=== PATIENT | male | born 1970 | race Caucasian/White ===

== ENCOUNTER 2020-03-14 17:15 | Emergency (ER) | payer BC ==
[2020-03-14] MEDS ORDERED: ceFAZolin 1,000 MG VIAL (IM USE) IM STA (18:04)
[2020-03-14] MEDS ORDERED: MORPHINE SULFATE 4 MG/ML SYRINGE IM STA (18:04)
[2020-03-14] MEDS ORDERED: DIPH,PERTUS(ACELL)TETVAC-LF 0.5 ML VIAL IM ONE (18:05)
[2020-03-14] MEDS ORDERED: WATER FOR IRRIG, STERILE 1,000 ML BTL IRRIGATION STA (18:05)
[2020-03-14] MEDS ORDERED: LIDOCAINE 1% INJ 10MG/ML (20 ML MDV) SQ ONE (18:11)
--- NOTE | 2020-03-14 18:31 | ED ---
General Adult HPI - General Chief complaint: Extremity Injury, Lower Stated complaint: chainsaw lac lt foot Time Seen by Provider: 03/14/20 17:58 Source: patient, RN notes reviewed Mode of arrival: wheelchair Limitations: no limitations - History of Present Illness Initial comments: 50-year-old male with a past medical history of hypertension presents to the emergency room for a chief complaint of laceration to the left great toe. Patient states the vadim sawed jumped and cut his left great toe. Patient states he has limited range of motion with extension of the left great toe. Patient is not sure if he is up-to-date on tetanus. Patient denies any other symptoms.Patient has no other complaints at this time including shortness of breath, chest pain, abdominal pain, nausea or vomiting, headache, or visual changes. - Related Data Home Medications Medication Instructions Recorded Confirmed Metoprolol Tartrate [Lopressor] 100 mg PO BID 08/15/15 08/15/15 amLODIPine BESYLATE [Norvasc] 10 mg PO DAILY 08/15/15 08/15/15 Previous Rx's Medication Instructions Recorded Cephalexin [Keflex] 500 mg PO Q6HR 28 Days #7 cap 03/14/20 Allergies Allergy/AdvReac Type Severity Reaction Status Date / Time No Known Allergies Allergy Verified 03/14/20 17:23 Review of Systems ROS Statement: Those systems with pertinent positive or pertinent negative responses have been documented in the HPI. ROS Other: All systems not noted in ROS Statement are negative. Past Medical History Past Medical History: Hypertension Additional Past Medical History / Comment(s): chronic back pain History of Any Multi-Drug Resistant Organisms: None Reported Past Surgical History: Hernia Repair Past Psychological History: No Psychological Hx Reported Smoking Status: Current every day smoker Past Alcohol Use History: Daily, Heavy Past Drug Use History: Marijuana General Exam Limitations: no limitations Course Vital Signs 03/14/20 17:23 Temperature 97.7 F Pulse Rate 93 Respiratory 18 Rate Blood Pressure 155/98 O2 Sat by Pulse 100 Oximetry Procedures - Laceration Laceration #1 Consent Obtained: verbal consent Indication: laceration Site: foot Size (cm): 3 Description: irregular Depth: involves tendon Anesthetic Used: lidocaine 1% Anesthesia Technique: local infiltration, nerve block Amount (mls): 8 Pre-repair: wound explored, irrigated extensively, deep structures intact, foreign body removed (small dirt particles removed) Type of Sutures: nylon Size of Sutures: 4-0 Number of Sutures: 7 Patient Tolerated Procedure: well, no complications Medical Decision Making - Medical Decision Making Vitals are stable. Physical exam reveals a laceration through the proximal phalanx of the left great toe. This does likely involve the tendon as patient is not able to extend the toe. Capillary refill is less than 2 seconds. X-ray of the left toe shows fracture and laceration deformity of the proximal phalanx of the big toe left foot. This was irrigated thoroughly with a liter of sterile water followed by saline pressure irrigation using an 18-gauge Angiocath. It was then approximated with 7 simple interrupted sutures. Patient was given tetanus immunization as well as IM Ancef. He will be placed on Keflex. He will be sent home with a prescription of Tylenol 3. I did discuss this with Dr. Noel who will see him in the office tomorrow. Patient is aware of this and will follow up. Disposition Clinical Impression: Open fracture of toe of left foot, Laceration of toe involving extensor tendon Disposition: HOME SELF-CARE Condition: Good Instructions (If sedation given, give patient instructions): Toe Fracture (ED), Laceration (ED) Additional Instructions: Please keep the area clean. Keep the area dressed. Take antibiotics as directed. Use a postop shoe. Walk more on your heel rather than "toeing off". Follow-up with Dr. Noel next week. Return to the emergency room for any worsening symptoms. Prescriptions: Cephalexin [Keflex] 500 mg PO Q6HR 28 Days #7 cap Is patient prescribed a controlled substance at d/c from ED?: No Referrals: Mary Marino MD [Primary Care Provider] - 1-2 days Doe Noel DO [Medical Doctor] - 1-2 days Time of Disposition: 19:51
--- NOTE | 2020-03-14 18:37 | XR ---
EXAMINATION TYPE: XR toes LT DATE OF EXAM: 03/14/2020 COMPARISON: NONE HISTORY: Injury. Pain. TECHNIQUE: 3 views FINDINGS: There is laceration deformity of the mid shaft of the proximal phalanx of the big toe left foot. There is fracture fragments and fracture of the lateral aspect of the shaft. There is no disloc ation. I see no definite foreign body. IMPRESSION: Fracture and laceration deformity of the proximal phalanx of the big toe left foot.
[2020-03-14] MEDS ORDERED: BACITRACIN OINT 1 EACH PACKET TOPICAL ONE (19:52)
[2020-03-14 20:14] VITALS: BP 158/89; PULSE 78; RESP 20; TEMP 98.2
== END 2020-03-14 20:00 | disposition home or self-care (01) ==
LOC: EC 17:15
DX: S92.402B Displaced unspecified fracture of left great toe, initial encounter for open fracture (principal); S96.122A Laceration of muscle and tendon of long extensor muscle of toe at ankle and foot level, left foot, initial encounter; I10 Essential (primary) hypertension; F17.200 Nicotine dependence, unspecified, uncomplicated; Z79.899 Other long term (current) drug therapy; W31.2XXA Contact with powered woodworking and forming machines, initial encounter
CPT/HCPCS: 73660; 90715; 99283; 12002; 96372 ×2; 90471; J2270; J0690; J2001

== ENCOUNTER 2021-05-30 08:34 | Observation (INO) | payer BC ==
[2021-05-30] MEDS ORDERED: NITROGLYCERIN OINT 1 INCH/GM PACKET TOPICAL STA (09:21)
[2021-05-30] MEDS ORDERED: ASPIRIN 81 MG PO STA (09:21)
--- NOTE | 2021-05-30 09:24 | ED ---
General Adult HPI - General Chief complaint: Chest Pain Stated complaint: YAHAIRA Time Seen by Provider: 05/30/21 09:00 Source: patient, RN notes reviewed Mode of arrival: ambulatory Limitations: no limitations - History of Present Illness Initial comments: Patient is a pleasant 51-year-old male presenting to the emergency department with concerns for chest discomfort. Onset of symptoms was several weeks ago. Symptoms usually occur only with exertion. Patient develops tightness in his chest with associated dyspnea. There is also some mild associated nausea and sweating at times. Symptoms are mild at this point. No history of similar symptoms previously. Currently symptoms are mild. No leg pain or leg swelling. - Related Data Home Medications Medication Instructions Recorded Confirmed Metoprolol Tartrate [Lopressor] 100 mg PO BID 08/15/15 05/30/21 amLODIPine BESYLATE [Norvasc] 10 mg PO HS 08/15/15 05/30/21 Aspirin EC [Ecotrin] 650 mg PO DAILY PRN 05/30/21 05/30/21 Losartan Potassium 100 mg PO HS 05/30/21 05/30/21 Pantoprazole [Protonix] 40 mg PO DAILY 05/30/21 05/30/21 cloNIDine HCL [Catapres] 0.1 mg PO DAILY 05/30/21 05/30/21 traMADol HCL [Ultram] 50 mg PO TID PRN 05/30/21 05/30/21 Allergies Allergy/AdvReac Type Severity Reaction Status Date / Time No Known Allergies Allergy Verified 05/30/21 10:42 Review of Systems ROS Statement: Those systems with pertinent positive or pertinent negative responses have been documented in the HPI. ROS Other: All systems not noted in ROS Statement are negative. Constitutional: Denies: fever Eyes: Denies: eye pain ENT: Denies: ear pain Respiratory: Reports: as per HPI, dyspnea Cardiovascular: Reports: as per HPI, chest pain Endocrine: Reports: fatigue Gastrointestinal: Denies: abdominal pain Genitourinary: Denies: dysuria Musculoskeletal: Denies: back pain Skin: Denies: rash Neurological: Denies: weakness Past Medical History Past Medical History: Hypertension Additional Past Medical History / Comment(s): chronic back pain History of Any Multi-Drug Resistant Organisms: None Reported Past Surgical History: Hernia Repair Past Psychological History: No Psychological Hx Reported Smoking Status: Current every day smoker Past Alcohol Use History: Daily, Occasional Past Drug Use History: Marijuana General Exam Limitations: no limitations General appearance: alert, in no apparent distress Head exam: Present: normocephalic Eye exam: Present: normal appearance Neck exam: Present: normal inspection Respiratory exam: Present: normal lung sounds bilaterally. Absent: chest wall tenderness Cardiovascular Exam: Present: regular rate, normal rhythm Expanded Peripheral pulses: 2+: Radial (R), Radial (L), Posterior Tibialis (R), Posterior Tibialis (L) GI/Abdominal exam: Present: soft. Absent: tenderness Extremities exam: Present: normal inspection. Absent: pedal edema, calf tenderness Neurological exam: Present: alert Psychiatric exam: Present: normal affect, normal mood Skin exam: Present: normal color Course Vital Signs 05/30/21 05/30/21 08:59 09:35 Temperature 98.2 F Pulse Rate 67 64 Respiratory 18 18 Rate Blood Pressure 183/103 143/103 O2 Sat by Pulse 98 96 Oximetry EKG Findings - EKG Comments: EKG Findings:: Normal sinus rhythm rate 62. For screening AV block WI 202. QRS 94. QT 394. QTC 39. Normal axis. Septal Q waves V1 and V2. No acute ST change. Medical Decision Making - Medical Decision Making Patient reevaluated and resting complain bed. Patient and family updated on results and plan. Case was discussed with Dr. pedro, who will admit coming hospital call. - Lab Data Result diagrams: 05/30/21 09:27 05/30/21 09:27 Lab Results 05/30/21 05/30/21 05/30/21 Range/Units 09:27 09:27 09:27 WBC 9.1 (3.8-10.6) k/uL RBC 4.45 (4.30-5.90) m/uL Hgb 14.6 (13.0-17.5) gm/dL Hct 41.4 (39.0-53.0) % MCV 93.0 (80.0-100.0) fL MCH 32.9 (25.0-35.0) pg MCHC 35.3 (31.0-37.0) g/dL RDW 12.6 (11.5-15.5) % Plt Count 206 (150-450) k/uL MPV 8.0 Neutrophils % 69 % Lymphocytes % 18 % Monocytes % 6 % Eosinophils % 5 % Basophils % 0 % Neutrophils # 6.3 (1.3-7.7) k/uL Lymphocytes # 1.6 (1.0-4.8) k/uL Monocytes # 0.6 (0-1.0) k/uL Eosinophils # 0.4 (0-0.7) k/uL Basophils # 0.0 (0-0.2) k/uL PT 10.0 (9.0-12.0) sec INR 0.9 (<1.2) APTT 23.9 (22.0-30.0) sec D-Dimer 0.27 (<0.60) mg/L FEU Sodium 136 L (137-145) mmol/L Potassium 4.4 (3.5-5.1) mmol/L Chloride 104 (98-107) mmol/L Carbon Dioxide 25 (22-30) mmol/L Anion Gap 7 mmol/L BUN 20 (9-20) mg/dL Creatinine 0.85 (0.66-1.25) mg/dL Est GFR (CKD-EPI)AfAm >90 (>60 ml/min/1.73 sqM) Est GFR (CKD-EPI)NonAf >90 (>60 ml/min/1.73 sqM) Glucose 108 H (74-99) mg/dL Calcium 9.6 (8.4-10.2) mg/dL Magnesium 1.9 (1.6-2.3) mg/dL Total Bilirubin 0.4 (0.2-1.3) mg/dL AST 34 (17-59) U/L ALT 58 H (4-49) U/L Alkaline Phosphatase 87 (38-126) U/L Troponin I (0.000-0.034) ng/mL NT-Pro-B Natriuret Pep pg/mL Total Protein 7.3 (6.3-8.2) g/dL Albumin 4.1 (3.5-5.0) g/dL 05/30/21 05/30/21 Range/Units 09:27 09:27 WBC (3.8-10.6) k/uL RBC (4.30-5.90) m/uL Hgb (13.0-17.5) gm/dL Hct (39.0-53.0) % MCV (80.0-100.0) fL MCH (25.0-35.0) pg MCHC (31.0-37.0) g/dL RDW (11.5-15.5) % Plt Count (150-450) k/uL MPV Neutrophils % % Lymphocytes % % Monocytes % % Eosinophils % % Basophils % % Neutrophils # (1.3-7.7) k/uL Lymphocytes # (1.0-4.8) k/uL Monocytes # (0-1.0) k/uL Eosinophils # (0-0.7) k/uL Basophils # (0-0.2) k/uL PT (9.0-12.0) sec INR (<1.2) APTT (22.0-30.0) sec D-Dimer (<0.60) mg/L FEU Sodium (137-145) mmol/L Potassium (3.5-5.1) mmol/L Chloride (98-107) mmol/L Carbon Dioxide (22-30) mmol/L Anion Gap mmol/L BUN (9-20) mg/dL Creatinine (0.66-1.25) mg/dL Est GFR (CKD-EPI)AfAm (>60 ml/min/1.73 sqM) Est GFR (CKD-EPI)NonAf (>60 ml/min/1.73 sqM) Glucose (74-99) mg/dL Calcium (8.4-10.2) mg/dL Magnesium (1.6-2.3) mg/dL Total Bilirubin (0.2-1.3) mg/dL AST (17-59) U/L ALT (4-49) U/L Alkaline Phosphatase (38-126) U/L Troponin I <0.012 (0.000-0.034) ng/mL NT-Pro-B Natriuret Pep 61 pg/mL Total Protein (6.3-8.2) g/dL Albumin (3.5-5.0) g/dL - Radiology Data Radiology results: image reviewed (X-ray shows no acute process) Disposition Clinical Impression: Chest pain Disposition: ADMITTED IP TO THIS [facility] Is patient prescribed a controlled substance at d/c from ED?: No Referrals: Mary Marino MD [Primary Care Provider] - 1-2 days Decision Time: 11:16
[2021-05-30 09:39] LABS: Basophils % (A) 0 %; Eosinophils # (A) 0.4 k/uL (0-0.7); Eosinophils % (A) 5 %; HCT 41.4 % (39.0-53.0); HGB 14.6 gm/dL (13.0-17.5); Lymphocytes # (A) 1.6 k/uL (1.0-4.8); Lymphocytes % (A) 18 %; MCH 32.9 pg (25.0-35.0); MCHC 35.3 g/dL (31.0-37.0); Monocytes # (A) 0.6 k/uL (0-1.0); Monocytes % (A) 6 %; Neutrophils # (A) 6.3 k/uL (1.3-7.7); Neutrophils % (A) 69 %; Platelet Count 206 k/uL (150-450); RBC 4.45 m/uL (4.30-5.90); RDW 12.6 % (11.5-15.5); WBC 9.1 k/uL (3.8-10.6)
[2021-05-30 09:50] LABS: ALT 58 U/L (4-49); AST 34 U/L (17-59); African American GFR (CKD) >90 (>60 ml/min/1.73 sqM); Albumin 4.1 g/dL (3.5-5.0); Alkaline Phosphatase 87 U/L (38-126); Anion Gap 7 mmol/L; Blood Urea Nitrogen 20 mg/dL (9-20); Calcium 9.6 mg/dL (8.4-10.2); Carbon Dioxide 25 mmol/L (22-30); Chloride 104 mmol/L (98-107); Glucose 108 mg/dL (74-99); Magnesium 1.9 mg/dL (1.6-2.3); Non-African American GFR(CKD) >90 (>60 ml/min/1.73 sqM); Potassium 4.4 mmol/L (3.5-5.1); Sodium 136 mmol/L (137-145); Total Bilirubin 0.4 mg/dL (0.2-1.3); Total Protein 7.3 g/dL (6.3-8.2)
[2021-05-30 09:59] LABS: INR 0.9 (<1.2); Partial Thromboplastin Time 23.9 sec (22.0-30.0)
--- NOTE | 2021-05-30 11:11 | XR ---
EXAMINATION TYPE: XR chest 2V DATE OF EXAM: 05/30/2021 COMPARISON: 08/15/2015 INDICATION: Chest pain TECHNIQUE: Frontal and lateral views of the chest are obtained. FINDINGS: The heart size is normal. The pulmonary vasculature is normal. The lungs are clear. IMPRESSION: 1. No acute pulmonary process.
[2021-05-30] MEDS ORDERED: NITROGLYCERIN SL TABS 0.4 MG TAB SUBLINGUAL PRN (11:17)
[2021-05-30] MEDS ORDERED: NITROGLYCERIN OINT 1 INCH/GM PACKET TOPICAL SCH (12:00)
[2021-05-30] MEDS ORDERED: HEPARIN SODIUM 1,000 UN/ML (10ML VL) IV ONE (12:17)
[2021-05-30] MEDS ORDERED: HEPARIN SODIUM 1,000 UN/ML (10ML VL) IV PRN (12:17)
[2021-05-30] MEDS ORDERED: HEPARIN SOD,PORK IN 0.45% NACL 25,000 UNIT in 0.45% NACL 1 250ML.BAG IV SCH (12:30)
--- NOTE | 2021-05-30 12:56 | P.CRDCN ---
History of Present Illness History of present illness: HISTORY OF PRESENTING ILLNESS This is a pleasant 51-year-old male past medical history significant for hypertension, chronic nicotine dependence. 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 We have been asked to see in consultation for chest pain. Patient presents emergency department with complaints of left-sided chest discomfort. He states it started a few weeks ago. Describes it as a pressure and tightness. It is non-radiating. It is exertional and aggravated by activity. Alleviated by resting. He had associated shortness of breath, nausea and diaphoresis. He states the pain would come and go. Denies palpitations, abdominal pain, lower extremity edema, fatigue, weakness, lightheadedness, syncope or near syncope symptoms. Denies orthopnea or PND. Continues to smoke, states he does drink alcohol daily. DIAGNOSTICS EKG reveals sinus rhythm HR 62, T wave inversion in lead V2, EKG in 2016 with similar findings. Most recent stress test in 2018 for stress echo in the office with Dr. Gage which was negative for reversible ischemia. Telemetry tracings indicate sinus mechanism Chest xray no acute cardiopulmonary process Laboratory reviewed, CBC unremarkable, troponin negative 1, d-dimer negative, sodium 136, potassium 4.4, BUN 20, serum creatinine 0.8, magnesium 1.9, proBNP 6 1, creatinine 19 PCR negative Current home medications include clonidine 0.1 mg daily, amlodipine 10 mg nightly, metoprolol titrate 100 mg twice a day, losartan 100 mg nightly, aspirin PRN REVIEW OF SYSTEMS At the time of my exam: CONSTITUTIONAL: Denies fever or chills. CARDIOVASCULAR: + chest pain, +shortness of breath, Denies orthopnea, PND or palpitations. RESPIRATORY: Denies cough. GASTROINTESTINAL: +nausea Denies abdominal pain, diarrhea, constipation, vomiting. MUSCULOSKELETAL: Denies myalgias. NEUROLOGIC: Denies numbness, tingling, headache or weakness. ENDOCRINE: Denies fatigue, weight change, polydipsia or polyurina. GENITOURINARY: Denies burning, hematuria or urgency with micturation. HEMATOLOGIC: Denies history of anemia or bleeding. PHYSICAL EXAMINATION Blood pressure 146/86, heart rate 68, afebrile, oxygen saturation is greater than 92% on room air CONSTITUTIONAL: No apparent distress. HEENT: Head is normocephalic. Pupils are equal, round. Sclerae anicteric. Mucous membranes of the mouth are moist. No JVD. No carotid bruit. CHEST EXAMINATION: Lungs are clear to auscultation. No chest wall tenderness is noted on palpation or with deep breathing. HEART EXAMINATION: Regular rate and rhythm. S1, S2 heard. No murmurs, gallops or rub. ABDOMEN: Soft, nontender. Positive bowel sounds. EXTREMITIES: 2+ peripheral pulses, no lower extremity edema and no calf tendern ess. SKIN: warm, dry NEUROLOGIC EXAMINATION: Patient is awake, alert and oriented x3. ASSESSMENT Chest pain History of hypertension Chronic nicotine dependence PLAN -Rule out acute coronary event, Trend troponin, repeat EKG -Obtain 2D echocardiogram and doppler study to assess cardiac structure and function. -Start IV heparin at this time -Continue aspirin 81mg daily, losartan 100mg nightly, amlodipine 10mg nightly -Start statin -Obtain Lipid panel -Hold metoprolol tartrate for possible stress test tomorrow -Will start hydralazine for blood pressure control -If troponin negative x 3 and EKG with no acute changes, plan for stress echo test to assess for stress induced cardiac ischemia tomorrow 05/31/21. -Smoking cessation discussed and highly recommended. Thank you kindly for this consultation. Nurse Practitioner note has been reviewed, I agree with a documented findings and plan of care. Patient was seen and examined. Past Medical History Past Medical History: Hypertension Additional Past Medical History / Comment(s): chronic back pain History of Any Multi-Drug Resistant Organisms: None Reported Past Surgical History: Hernia Repair Past Psychological History: No Psychological Hx Reported Smoking Status: Current every day smoker Past Alcohol Use History: Daily, Occasional Past Drug Use History: Marijuana Medications and Allergies Home Medications Medication Instructions Recorded Confirmed Type Metoprolol Tartrate [Lopressor] 100 mg PO BID 08/15/15 05/30/21 History amLODIPine BESYLATE [Norvasc] 10 mg PO HS 08/15/15 05/30/21 History Aspirin EC [Ecotrin] 650 mg PO DAILY PRN 05/30/21 05/30/21 History Losartan Potassium 100 mg PO HS 05/30/21 05/30/21 History Pantoprazole [Protonix] 40 mg PO DAILY 05/30/21 05/30/21 History cloNIDine HCL [Catapres] 0.1 mg PO DAILY 05/30/21 05/30/21 History traMADol HCL [Ultram] 50 mg PO TID PRN 05/30/21 05/30/21 History Allergies Allergy/AdvReac Type Severity Reaction Status Date / Time No Known Allergies Allergy Verified 05/30/21 10:42 Physical Exam Vitals: Vital Signs Temp Pulse Resp BP Pulse Ox 05/30/21 12:40 68 18 146/86 98 05/30/21 11:56 65 18 149/83 98 05/30/21 09:35 64 18 143/103 96 05/30/21 08:59 98.2 F 67 18 183/103 98 Intake and Output 05/29/21 05/30/21 05/30/21 22:59 06:59 14:59 Other: Weight 99.79 kg Results 05/30/21 09:27 05/30/21 09:27 Cardiac Enzymes 05/30/21 05/30/21 Range/Units 09:27 09:27 AST 34 (17-59) U/L Troponin I <0.012 (0.000-0.034) ng/mL Coagulation 05/30/21 Range/Units 09:27 PT 10.0 (9.0-12.0) sec APTT 23.9 (22.0-30.0) sec CBC 05/30/21 Range/Units 09:27 WBC 9.1 (3.8-10.6) k/uL RBC 4.45 (4.30-5.90) m/uL Hgb 14.6 (13.0-17.5) gm/dL Hct 41.4 (39.0-53.0) % Plt Count 206 (150-450) k/uL Comprehensive Metabolic Panel 05/30/21 Range/Units 09:27 Sodium 136 L (137-145) mmol/L Potassium 4.4 (3.5-5.1) mmol/L Chloride 104 (98-107) mmol/L Carbon Dioxide 25 (22-30) mmol/L BUN 20 (9-20) mg/dL Creatinine 0.85 (0.66-1.25) mg/dL Glucose 108 H (74-99) mg/dL Calcium 9.6 (8.4-10.2) mg/dL AST 34 (17-59) U/L ALT 58 H (4-49) U/L Alkaline Phosphatase 87 (38-126) U/L Total Protein 7.3 (6.3-8.2) g/dL Albumin 4.1 (3.5-5.0) g/dL Current Medications Generic Name Dose Route Start Last Admin Trade Name Danielq PRN Reason Stop Dose Admin Amlodipine Besylate 10 mg 05/30/21 21:00 Amlodipine 10 Mg Tab PO HS [facility] Aspirin 81 mg 05/31/21 09:00 Aspirin 81 Mg PO DAILY MARIANA Atorvastatin Calcium 40 mg 05/30/21 21:00 Atorvastatin 40 Mg Tab PO HS [facility] Heparin Sodium (Porcine) 0 unit 05/30/21 12:17 Heparin Sodium 1,000 Un/Ml (10ml Vl) IV PER PROTOCOL PRN Low PTT Protocol Hydralazine HCl 25 mg 05/30/21 21:00 Hydralazine Hcl 25 Mg Tab PO BID [facility] Heparin Sodium/Sodium Chloride 250 mls @ 9.979 mls/hr 05/30/21 12:30 25,000 unit/ Sodium Chloride IV .Q24H [facility] Protocol 10 UNITS/KG/HR Losartan Potassium 100 mg 05/30/21 21:00 Losartan 50 Mg Tab PO HS MARIANA Nitroglycerin 0.4 mg 05/30/21 11:17 Nitroglycerin Sl Tabs 0.4 Mg Tab SUBLINGUAL Q5M PRN Chest Pain Sodium Chloride 10 ml 05/30/21 21:00 Sodium Chloride 0.9% Flush 10 Ml Syringe IV BID [facility] Intake and Output 05/29/21 05/30/21 05/30/21 22:59 06:59 14:59 Other: Weight 99.79 kg Patient Weight 05/31/21 06:59 Weight 99.79 kg 05/30/21 09:27 05/30/21 09:27
[2021-05-30 13:07] LABS: Partial Thromboplastin Time 23.8 sec (22.0-30.0); Prothrombin Time 10.3 sec (9.0-12.0)
--- NOTE | 2021-05-30 14:57 | P.HPIM ---
History of Present Illness Patient is a pleasant 51-year-old male came in with complaints of chest pain on the left side of the chest radiating to the left arm pressure-like sensation exertional. Patient did have somewhat diaphoresis associated with the his pain. Patient pain is all on and off does smoke about 1 pack in 3 days. Patient chest pain is nonpleuritic not associated with food. EKG showed T-wave inversions in lead V2. Patient had a stress test in 2018 which was negative for any reversible ischemia chest x-ray did not show any significant abnormality troponins 2 were negative. Patient had history of palpitations. Patient also is presently sinus rhythm. REVIEW OF SYSTEMS: CONSTITUTIONAL: No fever, no malaise, no fatigue. HEENT: No recent visual problems or hearing problems. Denied any sore throat. CARDIOVASCULAR: No corthopnea, PND, no syncope. PULMONARY: No shortness of breath, no cough, no hemoptysis. GASTROINTESTINAL: No diarrhea, no nausea, no vomiting, no abdominal pain. NEUROLOGICAL: No headaches, no weakness, no numbness. HEMATOLOGICAL: Denies any bleeding or petechiae. GENITOURINARY: Denies any burning micturition, frequency, or urgency. MUSCULOSKELETAL/RHEUMATOLOGICAL: Denies any joint pain, swelling, or any muscle pain. ENDOCRINE: Denies any polyuria or polydipsia. The rest of the 14-point review of systems is negative. PHYSICAL EXAMINATION: GENERAL: The patient is alert and oriented x3, not in any acute distress. Well developed, well nourished. HEENT: Pupils are round and equally reacting to light. EOMI. No scleral icterus. No conjunctival pallor. Normocephalic, atraumatic. No pharyngeal erythema. No thyromegaly. CARDIOVASCULAR: S1 and S2 present. No murmurs, rubs, or gallops. PULMONARY: Chest is clear to auscultation, no wheezing or crackles. ABDOMEN: Soft, nontender, nondistended, normoactive bowel sounds. No palpable organomegaly. MUSCULOSKELETAL: No joint swelling or deformity. EXTREMITIES: No cyanosis, clubbing, or pedal edema. NEUROLOGICAL: Gross neurological examination did not reveal any focal deficits. SKIN: No rashes. Assessment and plan -Chest pain we'll rule out acute coronary syndromes patient will undergo stress test tomorrow patient will be monitored for his complaints of palpitations. -Hypertension -Nicotine dependence: Counseling was provided -Chronic low back pain DVT prophylaxis: Patient is presently on IV heparin for possible unstable angina which will be continued Past Medical History Past Medical History: Hypertension Additional Past Medical History / Comment(s): chronic back pain History of Any Multi-Drug Resistant Organisms: None Reported Past Surgical History: Hernia Repair Past Psychological History: No Psychological Hx Reported Smoking Status: Current every day smoker Past Alcohol Use History: Daily, Occasional Past Drug Use History: Marijuana Medications and Allergies Home Medications Medication Instructions Recorded Confirmed Type Metoprolol Tartrate [Lopressor] 100 mg PO BID 08/15/15 05/30/21 History amLODIPine BESYLATE [Norvasc] 10 mg PO HS 08/15/15 05/30/21 History Aspirin EC [Ecotrin] 650 mg PO DAILY PRN 05/30/21 05/30/21 History Losartan Potassium 100 mg PO HS 05/30/21 05/30/21 History Pantoprazole [Protonix] 40 mg PO DAILY 05/30/21 05/30/21 History cloNIDine HCL [Catapres] 0.1 mg PO DAILY 05/30/21 05/30/21 History traMADol HCL [Ultram] 50 mg PO TID PRN 05/30/21 05/30/21 History Allergies Allergy/AdvReac Type Severity Reaction Status Date / Time No Known Allergies Allergy Verified 05/30/21 10:42 Physical Exam Vitals: Vital Signs Temp Pulse Resp BP Pulse Ox 05/30/21 12:40 68 18 146/86 98 05/30/21 11:56 65 18 149/83 98 05/30/21 09:35 64 18 143/103 96 05/30/21 08:59 98.2 F 67 18 183/103 98 Intake and Output 05/29/21 05/30/21 05/30/21 22:59 06:59 14:59 Other: Weight 99.79 kg Results CBC & Chem 7: 05/30/21 09:27 05/30/21 09:27 Labs: Abnormal Lab Results - Last 24 Hours (Table) 05/30/21 Range/Units 09:27 Sodium 136 L (137-145) mmol/L Glucose 108 H (74-99) mg/dL ALT 58 H (4-49) U/L
--- NOTE | 2021-05-30 17:07 | ECHOF ---
Referral Reason:LV function MEASUREMENTS -------- HEIGHT: 172.7 cm WEIGHT: 99.8 kg BP: IVSd: 1.4 cm (0.6 - 1.1) LVIDd: 3.8 cm (3.9 - 5.3) LVPWd: 1.2 cm (0.6 - 1.1) IVSs: 2.0 cm LVIDs: 2.0 cm LVPWs: 2.3 cm Ao Diam: 3.2 cm (2.0 - 3.7) AV Cusp: 2.2 cm (1.5 - 2.6) LA Diam: 3.2 cm (2.7 - 3.8) MV EXCURSION: 19.089 mm (> 18.000) MV EF SLOPE: 69 mm/s (70 - 150) EPSS: 0.9 cm MV E Khoi: 0.56 m/s MV DecT: 271 ms MV A Khoi: 0.62 m/s MV E/A Ratio: 0.91 RAP: 5.00 mmHg RVSP: 25.94 mmHg FINDINGS -------- This was a technically adequate study. The left ventricular size is normal. There is mild concentric left ventricular hypertrophy. Overa ll left ventricular systolic function is normal with, an EF between 55 - 60 %. The right ventricle is normal in size. The left atrial size is normal. The right atrial size is normal. The aortic valve is trileaflet and appears structurally normal. The mitral valve is normal. There is trace mitral regurgitation. The tricuspid valve appears structurally normal. Trace tricuspid regurgitation present. Right lee ann tricular systolic pressure is normal at < 35 mmHg. There is no pulmonic regurgitation present. The aortic root size is normal. IVC Not well visulized. There is no pericardial effusion. CONCLUSIONS -------- 1. The left ventricular size is normal. 2. There is mild concentric left ventricular hypertrophy. 3. Overall left ventricular systolic function is normal with, an EF between 55 - 60 %. 4. There is trace mitral regurgitation. 5. Trace tricuspid regurgitation present. 6. There is no pericardial effusion. [employer] SUPERVISOR: Arely Srinivasan [facility]
[2021-05-30] MEDS ORDERED: LOSARTAN 50 MG TAB PO SCH (21:00)
[2021-05-30] MEDS ORDERED: ATORVASTATIN 40 MG TAB PO SCH (21:00)
[2021-05-30] MEDS ORDERED: METOPROLOL TARTRATE 50 MG TAB PO SCH (21:00)
[2021-05-30] MEDS ORDERED: amLODIPine 10 MG TAB PO SCH (21:00)
[2021-05-30] MEDS ORDERED: hydrALAZINE HCL 25 MG TAB PO SCH (21:00)
[2021-05-31] MEDS ORDERED: diphenhydrAMINE 25 MG CAP PO PRN (02:01)
[2021-05-31] MEDS ORDERED: ACETAMINOPHEN TAB 325 MG TAB PO PRN ×2 (02:01→12:47)
[2021-05-31 02:37] LABS: Basophils # (A) 0.1 k/uL (0-0.2); Basophils % (A) 1 %; Eosinophils # (A) 0.3 k/uL (0-0.7); Eosinophils % (A) 4 %; HCT 39.3 % (39.0-53.0); HGB 13.3 gm/dL (13.0-17.5); Lymphocytes # (A) 2.4 k/uL (1.0-4.8); Lymphocytes % (A) 30 %; MCH 31.9 pg (25.0-35.0); MCHC 33.9 g/dL (31.0-37.0); MCV 94.3 fL (80.0-100.0); Mean Platelet Volume 8.2; Monocytes # (A) 0.5 k/uL (0-1.0); Monocytes % (A) 7 %; Neutrophils # (A) 4.4 k/uL (1.3-7.7); Neutrophils % (A) 56 %; Platelet Count 193 k/uL (150-450); RBC 4.16 m/uL (4.30-5.90); RDW 12.6 % (11.5-15.5); WBC 7.9 k/uL (3.8-10.6)
[2021-05-31 07:53] VITALS: RESP 20; TEMP 97.5
[2021-05-31] MEDS ORDERED: hydrALAZINE HCL 25 MG TAB PO SCH (09:00)
[2021-05-31] MEDS ORDERED: ASPIRIN 81 MG PO SCH (09:00)
[2021-05-31] MEDS ORDERED: ASPIRIN 325 MG TAB PO SCH (09:00)
[2021-05-31 09:21] LABS: INR 1.01 (0.90-1.11); Prothrombin Time 11.1 sec (9.9-11.9)
[2021-05-31 09:35] LABS: Chol/HDL Ratio 3.84 Ratio; LDL Cholesterol,Calculated 95.3 mg/dL (0.0-131.0)
--- NOTE | 2021-05-31 11:20 | ECHOS ---
STRESS ECHOCARDIOGRAM INDICATIONS: @@ BASELINE HEART RATE: @@ BASELINE BLOOD PRESSURE: @@ MAXIMUM HEART RATE: @@ MAXIMUM BLOOD PRESSURE: @@ 85% MPHR: @@ 100% MPHR: @@ METS: @@ MAXIMUM STAGE REACHED: @@ TOTAL EXERCISE TIME: @@ CLINICAL INFORMATION: Baseline EKG revealed normal sinus rhythm without significant ST-T changes. Patient walked on standard Demetrius protocol for a total duration of 6 minutes, achieved a maximal heart rate of 152 beats per minute, which is more than 85% of predicted maximum, developed fatigue and shortness of breath but did not have angina. EKG did not reveal any ST-segment changes to indicate ischemia. Patient had hypertensive response to exercise. This is a negative stress test with limited exercise capacity and hypertensive response to exercise. Baseline echo images revealed normal wall motion and wall thickening of all segments. At peak exercise there was good augmentation of left ventricular wall motion and wall thickening of all segments, suggesting that there is no evidence of any stress-induced ischemia on this study. FINAL IMPRESSION: 1. Limited exercise capacity. Negative stress test by EKG criteria. 2. Hypertensive response to exercise. 3. Normal stress echocardiogram without evidence of ischemia. MMODL / IJN: [id number] /
[2021-05-31] MEDS ORDERED: METOPROLOL TARTRATE 50 MG TAB PO SCH ×2 (11:27→21:00)
--- NOTE | 2021-05-31 11:34 | P.PN ---
Subjective This is a pleasant 51-year-old male past medical history significant for hypertension, chronic nicotine dependence. He does not follow with a cardio logist. We have been asked to see in consultation for chest pain. Patient presents emergency department with complaints of left-sided chest discomfort. Troponin negative x 3. EKG with no evidence of acute ischemia. Patient seen and examined at bedside, no acute distress. His chest pain has resolved. He denies any shortness of breath. Patient's echocardiogram revealed EF 5560 percent, no significant wall motion abnormalities. Patient underwent stress Echo test which was negative for reversible ischemia. Labs reviewed, triglycerides 226, cholesterol 190, LDL 95, HDL 49. PHYSICAL EXAMINATION Blood pressure 162/93, heart rate 79, afebrile, saturations greater than 92% on room air CONSTITUTIONAL: No apparent distress. HEENT: Neck supple No JVD. CHEST EXAMINATION: Lungs are clear to auscultation. HEART EXAMINATION: Regular rate and rhythm. S1, S2 heard. No murmurs, gallops or rub. ABDOMEN: Soft, nontender. Positive bowel sounds. EXTREMITIES: 2+ peripheral pulses, no lower extremity edema and no calf tenderness. NEUROLOGIC EXAMINATION: Patient is awake, alert and oriented x3. ASSESSMENT Chest pain, atypical, acute coronary syndrome has been ruled out History of hypertension Chronic nicotine dependence Dyslipidemia, Lipid panel reviewed, 10-year ASCVD risk 15.3%, statin recommended PLAN -Echocardiogram revealed EF 5560 percent, no significant wall motion abnormalities. Patient underwent stress Echo test which was negative for reversible ischemia. -Continue losartan 100mg nightly, amlodipine 10mg nightly and metoprolol tartrate 100mg BID -Continue statin -Smoking cessation discussed and highly recommended. -From cardiology perspective, patient stable for discharged home. Follow-up as an outpatient. Thank you kindly for this consultation. Nurse Practitioner note has been reviewed, I agree with a documented findings and plan of care. Patient was seen and examined. Objective - Vital Signs Vital signs: Vital Signs Temp 97.5 F L 05/31/21 07:00 Pulse 79 05/31/21 08:00 Resp 20 05/31/21 08:00 BP 162/93 05/31/21 07:00 Pulse Ox 94 L 05/31/21 07:00 Intake & Output 05/30/21 05/31/21 05/31/21 18:59 06:59 18:59 Intake Total 172.379 Balance 172.379 Weight 99.79 kg 99.79 kg Intake: Intake, IV Titration 172.379 Amount Heparin Sod,Pork in 0.45% 172.379 NaCl 25,000 unit In 0.45 % NaCl 1 250ml.bag @ 10 UNITS/KG/HR 9.979 mls/hr IV .Q24H [facility] Rx#: [id number] Other: Voiding Method Toilet # Voids 3 - Labs CBC & Chem 7: 05/31/21 02:07 05/30/21 09:27 Labs: Abnormal Lab Results - Last 24 Hours (Table) 05/30/21 05/31/21 05/31/21 Range/Units 18:53 02:07 02:07 RBC 4.16 L (4.30-5.90) m/uL APTT 30.5 H 56.4 H (22.0-30.0) sec Triglycerides (0.00-149.00) mg/dL VLDL Cholesterol, Calc (5.00-40.00) mg/dL 05/31/21 Range/Units 02:07 RBC (4.30-5.90) m/uL APTT (22.0-30.0) sec Triglycerides 226.00 H (0.00-149.00) mg/dL VLDL Cholesterol, Calc 45.20 H (5.00-40.00) mg/dL
[2021-05-31 11:35] VITALS: BP 162/91; PULSE 105
--- NOTE | 2021-06-01 22:28 | P.DS ---
Providers Date of admission: 05/30/21 11:17 Attending physician: Cameron Alvarado MD Consults: 05/30/21 11:17 Consult Physician Urgent Consulting Provider: Brandan Hooker Consult Reason/Comments: cp Do you want consulting provider notified?: Yes Primary care physician: Mary Marino Hospital Course: Final Diagnosis Chest pain, atypical, ACS ruled out Hypertension Chronic nicotine dependence Chronic low back pain Chronic ETOH use History of THC Discharge Disposition Patient is discharged home, cleared by cardiology status post echo stress. Counseled on smoking cessation. He was started on lipitor 40 mg po hs, and changed to aspirin 81 mg po daily. Hospital Course This is a pleasant 51 year old male who presents to the with complaints of left sided chest pain which is radiating to the left arm, described as pressure like, and exertional. Associated diaphoresis present, pain is intermittent, and nonplueritic. Patient is chronic smoker, smokes about 1 pack in 3 days, however his significant other smokes more than 1 pack per day and he is exposed to second hand smoke just about all day long. EKG showed T-Wave inversion in lead V2. Patient did have a stress test in 2018 that was negative for reversible ischemia. Additional past medical history includes hypertension, chronic back pain, hernia repair, daily smoker, intermittent chronic alcohol use. Echocardiogram reveals an EF of 55 -60% with trace mitral and trace tricuspid regurgitation. Patient was evaluated by cardiology who recommended an echo stress which was negative for reversible ischemia. He was discharged on a statin, and cleared by cardiology to follow up outpatient. Counseled on smoking cessation. Labs include ALT of 58, troponins were negative x3, and trigylcerides elevated at 226. Pt has been afebrile, blood pressure 162/91, heart rate 70s sinus rhythm, on room air. 05/31/2021 Patient is chest pain free, denies palpitations, cough, shortness of breath. He denies n/v/d. Lungs are clear, focal neurological exam is negative. Patient was cleared by cardiology for discharge. Vital signs are stable today. Please see medication reconciliation for a list of current medications. Thank your for allowing us to participate in the care of this patient. Patient Condition at Discharge: Stable Plan - Discharge Summary Discharge Rx Participant: Yes New Discharge Prescriptions: New Aspirin 81 mg PO DAILY #30 tab Acetaminophen Tab [Tylenol] 650 mg PO Q6HR PRN tab PRN Reason: Fever and/ or Mild Pain Atorvastatin [Lipitor] 40 mg PO HS 30 Days #30 tab diphenhydrAMINE [Benadryl] 25 mg PO HS PRN cap PRN Reason: Insomnia Continue Metoprolol Tartrate [Lopressor] 100 mg PO BID amLODIPine BESYLATE [Norvasc] 10 mg PO HS cloNIDine HCL [Catapres] 0.1 mg PO DAILY Losartan Potassium 100 mg PO HS Pantoprazole [Protonix] 40 mg PO DAILY traMADol HCL [Ultram] 50 mg PO TID PRN PRN Reason: Pain Discontinued Aspirin EC [Ecotrin] 650 mg PO DAILY PRN PRN Reason: Pain Discharge Medication List Metoprolol Tartrate [Lopressor] 100 mg PO BID 08/15/15 [History] amLODIPine BESYLATE [Norvasc] 10 mg PO HS 08/15/15 [History] Losartan Potassium 100 mg PO HS 05/30/21 [History] Pantoprazole [Protonix] 40 mg PO DAILY 05/30/21 [History] cloNIDine HCL [Catapres] 0.1 mg PO DAILY 05/30/21 [History] traMADol HCL [Ultram] 50 mg PO TID PRN 05/30/21 [History] Acetaminophen Tab [Tylenol] 650 mg PO Q6HR PRN tab 05/31/21 [Rx] Aspirin 81 mg PO DAILY #30 tab 05/31/21 [Rx] Atorvastatin [Lipitor] 40 mg PO HS 30 Days #30 tab 05/31/21 [Rx] diphenhydrAMINE [Benadryl] 25 mg PO HS PRN cap 05/31/21 [Rx] Follow up Appointment(s)/Referral(s): Remi Toscano MD [STAFF PHYSICIAN] - 2 Weeks (office will call with appointment date and time. ) Mary Marino MD [Primary Care Provider] - 1-2 days Ambulatory/Diagnostic Orders: Basic Metabolic Panel [LAB.AMB] Time Frame: 3 Days, Location: None Selected Discharge Disposition: HOME SELF-CARE
== END 2021-05-31 14:30 | disposition home or self-care (01) ==
LOC: EC 08:34 → 6NMEDSUR 11:17
PROVIDERS: ADMIT Internal Medicine; ATTEND Internal Medicine
DX: R07.89 Other chest pain (principal); I10 Essential (primary) hypertension; F17.210 Nicotine dependence, cigarettes, uncomplicated; G89.29 Other chronic pain; M54.50 Low back pain, unspecified; Z20.822 Contact with and (suspected) exposure to COVID-19; Z72.89 Other problems related to lifestyle; R06.00 Dyspnea, unspecified; R00.2 Palpitations; G47.00 Insomnia, unspecified; R11.0 Nausea; R61 Generalized hyperhidrosis; R06.02 Shortness of breath; E78.5 Hyperlipidemia, unspecified; Z71.6 Tobacco abuse counseling; Z79.899 Other long term (current) drug therapy
CPT/HCPCS: 96366 ×3; 96376; 96365; 99285; 36415; 93005; 93306; 93351; 85379; 83880; 80061; 80053; 83735; 84484; 85025 ×2; 85610 ×2; 85730 ×2; 87635; 71046; G0378 ×2; J1644 ×2

== ENCOUNTER → 2024-07-24 | Day surgery (SDC) | payer OTHER ==
[~2024-07-24] MED LIST: LIDOCAINE 1% (10MG/ML) FOR IV START INTRADERMA PRN; LIDOCAINE 2% (PF) 20 MG/ML 5 ML VIAL ONE; PROPOFOL 10 MG/ML 20 ML VIAL IV ONE; fentaNYL (PF) 50 MCG/ML 2 ML AMP ONE
[2024-07-24 08:28] VITALS: TEMP 97.1
[2024-07-24] MEDS: IV FLUID CONTINUATION 1,000 ML IV ONE (08:35)
[2024-07-24] MEDS: LACTATED RINGERS 1,000 ML IV SCH (08:35)
--- NOTE | 2024-07-24 08:59 | P.GSHP ---
History of Present Illness H&P Date: 07/24/24 Chief Complaint: Gerd This is a 54-year-old male presents today for EGD. Patient th is a gerd. Past Medical History Past Medical History: GERD/Reflux, Hypertension, Liver Disease, Osteoarthritis (OA) Additional Past Medical History / Comment(s): chronic back pain, elevated liver enzymes, nausea History of Any Multi-Drug Resistant Organisms: None Reported Past Surgical History: Heart Catheterization, Hernia Repair Past Anesthesia/Blood Transfusion Reactions: No Reported Reaction Smoking Status: Current every day smoker - Past Family History Father Family Medical History: Diabetes Mellitus, Hypertension, Skin Disorder Mother Family Medical History: AICD/Pacemaker, Chest Pain / Angina, Diabetes Mellitus Medications and Allergies Home Medications Medication Instructions Recorded Confirmed Type Pantoprazole [Protonix] 40 mg PO HS 05/30/21 07/24/24 History traMADol HCL [Ultram] 50 mg PO Q6H 05/30/21 07/24/24 History Metoprolol Tartrate [Lopressor] 50 mg PO BID #60 tab 08/05/22 07/24/24 Rx Colchicine 0.6 mg PO DAILY PRN 07/22/24 07/24/24 History Losartan/Hydrochlorothiazide 0.5 tab PO HS 07/22/24 07/24/24 History [Losartan-Hctz 100-12.5 mg Tab] Montelukast [Singulair] 10 mg PO HS 07/22/24 07/24/24 History Multivitamins, Thera [Multivitamin 1 tab PO DAILY 07/22/24 07/24/24 History (formulary)] Spironolactone [Aldactone] 25 mg PO HS 07/22/24 07/24/24 History tiZANidine [Zanaflex] 4 mg PO Q8HR PRN 07/22/24 07/24/24 History Allergies Allergy/AdvReac Type Severity Reaction Status Date / Time No Known Allergies Allergy Verified 07/24/24 08:23 Surgical - Exam Vital Signs Temp Pulse Resp BP Pulse Ox 97.1 F L 70 18 158/94 98 07/24/24 08:23 07/24/24 08:23 07/24/24 08:23 07/24/24 08:23 07/24/24 08:23 - General well developed, well nourished, no distress - Eyes PERRL - ENT normal pinna - Neck no masses - Respiratory normal expansion - Cardiovascular Rhythm: regular - Abdomen Abdomen: soft, non tender Assessment and Plan Assessment: Gerd. . Will perform EGD.
--- NOTE | 2024-07-24 09:09 | P.OP ---
Date of Procedure: 07/24/24 Preoperative Diagnosis: gerd Postoperative Diagnosis: Gerd Procedure(s) Performed: EGD Anesthesia: MAC Surgeon: Estrada Urbina Pathology: other (Antrum, esophagus) Condition: stable Disposition: PACU Description of Procedure: The patient was placed on the endoscopy table in the lateral position. He rec eived IV sedation. The Gastroflux oropharynx passed in the esophagus and stomach. Scope was placed through the pylorus. The first and second portion of the duodenum appeared normal. Scope was brought back to the antrum this was mildly Flaim. A biopsy performed. Scope was then retroflexed the Mainer of the stomach appeared normal. The patient is a small sliding hiatal hernia. The GE junction was at 39 cm. The distal esophagus appeared mildly Flaim. A biopsy performed. The proximal esophagus appeared normal. Scope withdrawn for the patient.
[2024-07-24 09:30] VITALS: BP 141/76; PULSE 72; RESP 16
== END | disposition home or self-care (01) ==
LOC: ORWHC2ENDO 08:09
PROVIDERS: ATTEND Surgery
DX: K21.00 Gastro-esophageal reflux disease with esophagitis, without bleeding (principal); K44.9 Diaphragmatic hernia without obstruction or gangrene; K31.89 Other diseases of stomach and duodenum; I10 Essential (primary) hypertension; M19.90 Unspecified osteoarthritis, unspecified site; R74.8 Abnormal levels of other serum enzymes; F17.210 Nicotine dependence, cigarettes, uncomplicated; Z79.899 Other long term (current) drug therapy
CPT/HCPCS: 88305; 43239; J3010; J2704; J2003